=== PATIENT | female | born 1950 | race Caucasian/White ===

== ENCOUNTER → 2021-12-31 13:26 | Outpatient (BNVA) | payer MEDICARE, OTHER, SELFPAY | PROVIDERS: Family Provider Nurse Practitioner Family; PCP Nurse Practitioner Family; Visit Provider Podiatrist Foot & Ankle Surgery | DX: M79.89 Other specified soft tissue disorders (principal); M21.371 Foot drop, right foot; M21.541 Acquired clubfoot, right foot | CPT/HCPCS: 10021; 73630; 88307; 99204 ==

== ENCOUNTER → 2022-01-07 09:53 | Outpatient (BNVA) | payer MEDICARE, OTHER, SELFPAY | PROVIDERS: Family Provider Nurse Practitioner Family; PCP Nurse Practitioner Family; Visit Provider Podiatrist Foot & Ankle Surgery | DX: M21.371 Foot drop, right foot (principal); M21.541 Acquired clubfoot, right foot; M79.89 Other specified soft tissue disorders | CPT/HCPCS: 99214 ==

== ENCOUNTER 2022-02-03 01:00 | Day surgery (SDC) | payer MEDICARE, OTHER, SELFPAY | END 2022-02-03 23:00 | disposition home or self-care (01) | LOC: OR 03-24 14:29 | PROVIDERS: PCP Nurse Practitioner Family; Visit Provider Podiatrist Foot & Ankle Surgery | DX: Z01.818 Encounter for other preprocedural examination (principal) | CPT/HCPCS: 87070; 87075; 87205 ==

== ENCOUNTER → 2022-02-03 08:23 | Outpatient (BNVA) | payer MEDICARE, OTHER, SELFPAY | PROVIDERS: Family Provider Nurse Practitioner Family; PCP Nurse Practitioner Family; Visit Provider Podiatrist Foot & Ankle Surgery | DX: M79.89 Other specified soft tissue disorders (principal) | CPT/HCPCS: 10140; 88307 ==

== ENCOUNTER → 2022-02-10 07:46 | Outpatient (BNVA) | payer MEDICARE, OTHER, SELFPAY | PROVIDERS: Family Provider Nurse Practitioner Family; PCP Nurse Practitioner Family; Visit Provider Podiatrist Foot & Ankle Surgery | DX: M21.541 Acquired clubfoot, right foot (principal); M21.371 Foot drop, right foot; M79.89 Other specified soft tissue disorders | CPT/HCPCS: 99214 ==

== ENCOUNTER 2022-02-19 11:41 | Day surgery (SDC) | payer MEDICARE, OTHER, SELFPAY ==
[2022-02-19] VITALS (7 sets, daily range): BP systolic 125–177; BP diastolic 54–87; PULSE 55–63; RESP 16–18; TEMP 36.1–36.6; O2SAT 95–98
[2022-02-19] MEDS: gabapentin 300 mg Capsule PO (12:11)
[2022-02-19] MEDS: sodium chloride 0.9% 1,000 ML 30 ML IV (12:12)
[2022-02-19] MEDS: CELEcoxib 200 mg Capsule 400 MG PO (12:12)
--- NOTE | 2022-02-19 12:13 | ECG_ITS ---
[facility] Test Date: 2022-02-19 Pat Name: Joya Alvares Department: Room: Gender: Female Help Desk Manager: : 1950 Requested By: Buzz Ngo Order Number: [id number] Blair MD: Sandra Scales M.D. Measurements Intervals Kinsey Rate: 58 P: 74 MT: 162 QRS: 39 QRSD: 97 T: 72 QT: 410 QTc: 404 Interpretive Statements SINUS BRADYCARDIA No previous ECG available for comparison Electronically Signed On 02-20-2022 20:40:43 SENIOR HUMAN RESOURCES REPRESENTATIVE by Sandra Scales M.D. [id number]
--- NOTE | 2022-02-19 13:04 | ANES.PREANE2 ---
Pre-Anesthetic Assessment Height/Weight: Height 1.63 m Weight 49.895 kg Temp Pulse Resp BP Pulse Ox O2 Del Method 98 F 63 18 177/87 97 02/19/22 11:49 02/19/22 11:49 02/19/22 11:49 02/19/22 11:49 02/19/22 11:49 02/19/22 12:05 Preop Diagnosis: Right foot soft tissue mass Operation Date: 02/19/22 13:15 Proposed Procedures p Soft tissue mass excision greater than 1.5cm CPT 51528,R22.41,M79.9(Right) - Buzz Ngo DPM Familial anesthetic complications: None Was Beta Fredy taken within 24 hours: N/A Was Clonidine taken within 24 hours: N/A Last intake: Intake Last Liquid Date 02/18/22 Last Liquid Time 23:00 Last Solid Date 02/18/22 Last Solid Time 19:00 Social Tobacco and No alcohol Exam alert, oriented x 3, clear to auscultation bilaterally and regular rate & rhythm Airway Mallampati: Class I Dentition: other (multiple missing, poor dentition ( they'll all get pulled soon )) CV/HEM Hypertension Anesthetic Plan ASA status: 2 Anesthesia: MAC Risk of > 500 ml blood loss (7ml/kg in children): No Medications/Allergies Home Medications Medication Instructions Recorded Confirmed Last Taken Type AFO non articulating #1 ea 12/31/21 02/10/22 Unknown Rx telmisartan 40 mg tablet 40 mg PO DAILY #90 tabs 02/10/22 02/18/22 02/18/22 Rx aspirin 81 mg tablet 81 mg PO DAILY 02/18/22 02/18/22 02/18/22 History Allergies Allergy/AdvReac Type Severity Reaction Status Date / Time Penicillins Allergy Severe BREATHING Verified 02/18/22 14:09 PROBLEMS prednisone Allergy Mild RASH Verified 02/18/22 14:09 Sulfa (Sulfonamide Allergy Mild RASH Verified 02/18/22 14:09 Antibiotics) tetracycline Allergy Mild RASH Verified 02/18/22 14:09 Current Medications Generic Name Dose Route Start Last Admin Trade Name Freq PRN Reason Stop Dose Admin Sodium Chloride 1,000 mls @ 30 mls/hr 02/19/22 12:00 02/19/22 12:12 Sodium Chloride 0.9% IV 02/20/22 11:59 30 mls/hr .Q24H NIRAV Administration PFSH Anesthesia Surgical History Hx of section Hx of hemorrhoidectomy Hx of tubal ligation Family History Grandmother CHF (congestive heart failure) Hypertension Mother Hypertension Social History Smoking and tobacco status: current every day smoker Alcohol intake: never Adopted: No Caregiver/support person: No Lives independently: Yes service: No Current occupational status: retired Current gender identity: Female Data Anesthesia 02/19/22 12:10 Cardiac Studies: No Data to Display
[2022-02-19 13:05] LABS: Blood Urea Nitrogen 10 mg/dL (8-23); Calcium 9.5 mg/dL (8.5-10.5); Carbon Dioxide 27 mmol/L (22-29); Chloride 101 mmol/L (98-107); Glucose 79 mg/dL (65-115); Osmolality Calculated 278 mOsm/kg (285-295); Sodium 135 mmol/L (136-145)
[2022-02-19 13:08] LABS: Anion Gap 11.6 (5-19); Potassium 4.6 mmol/L (3.5-5.1)
--- NOTE | 2022-02-19 13:13 | P.HP_ITS ---
Same Day Surgery H&P Indication for Procedure/HPI DATE OF PROCEDURE: February 19, 2022 CHIEF COMPLAINT/INDICATIONFOR SURGICAL PROCEDURE: Right foot soft tissue mass PREOP DIAGNOSIS: Right foot soft tissue mass PLANNED PROCEDURE: Operation Date: 02/19/22 13:15 Proposed Procedures p Soft tissue mass excision greater than 1.5cm CPT 44932,R22.41,M79.9(Right) - Buzz Ngo DPM Patient has had right soft tissue mass for some time now. Conservative treatment options have been attempted and patient has opted for surgical removal of the mass at this time. Medications/Allergies* Penicillin, prednisone, sulfa antibiotics, tetracycline Home Medications Medication Instructions Recorded Confirmed Type aspirin 81 mg tablet 81 mg PO DAILY 02/18/22 02/18/22 History Allergies/Adverse Reactions Allergy/AdvReac Type Severity Reaction Status Date / Time Penicillins Allergy Severe BREATHING Verified 02/18/22 14:09 PROBLEMS prednisone Allergy Mild RASH Verified 02/18/22 14:09 Sulfa (Sulfonamide Allergy Mild RASH Verified 02/18/22 14:09 Antibiotics) tetracycline Allergy Mild RASH Verified 02/18/22 14:09 Current Medications: 3 Generic Name Dose Route Start Last Admin Trade Name Freq PRN Reason Stop Dose Admin Sodium Chloride 1,000 mls @ 30 mls/hr 02/19/22 12:00 02/19/22 12:12 Sodium Chloride 0.9% IV 02/20/22 11:59 30 mls/hr .Q24H NIRAV Administration Pertinent History/Comorbid Conditions* Surgical History (Updated 01/22/22 @ 10:15 by SAGE Badillo) Hx of section Hx of hemorrhoidectomy Hx of tubal ligation Family History (Updated 12/18/21 @ 14:24 by Federica Abbott LPN) CHF (congestive heart failure) Grandmother Hypertension Grandmother Mother Social History Smoking and tobacco status: current every day smoker Alcohol intake: never Adopted: No Caregiver/support person: No Lives independently: Yes service: No Current occupational status: retired Current gender identity: Female Pertinent Exam Findings alert, oriented x 3, clear to auscultation bilaterally, regular rate & rhythm, operative site marked and procedure specific exam findings GENERAL: A&O x 3 VASCULAR: DP/PT pulses palpable 2/4 with CFT intact, <3seconds to distal digits DERMATOLOGICAL: Skin turgor and temperature is within normal limits. No open wounds or skin lesions noted. Nails are well manicured and normotrophic. No interdigital maceration noted. MUSCULOSKELETAL: Plantar right heel soft tissue mass freely mobile NEUROLOGICAL: Neurological sensation to the affected foot and ankle is present through L4-S1 dermatomes with no hyper/hypoesthesias, negative Tinel or Ashley leix's sign CARDIO: Regular rate and rhythm. Normal S1, S2. No murmurs, rubs or gallops RESPIRATORY: Normal respiratory effort. No wheezing or crackles. Clear to auscultation Recommendations Surgery/Procedure today Other Plans: Right foot soft tissue mass excision Coding Level of Care Code Acute Lead Manufacturing Engineering Tech for Donnie Craig
[2022-02-19] MEDS: clindamycin 600 MG/50 ML PREMIX 100 MG IV (13:23)
[2022-02-19] MEDS: HYDROcodone-acetaminophen 5-325 mg Tablet 1 TAB PO (14:36)
--- NOTE | 2022-02-19 16:53 | ANE.PACU2 ---
Inpatient post-anesthesia follow up: Airway intact: Yes Vital signs: Temperature 97.8 F Pulse Rate 61 Respiratory Rate 18 Blood Pressure 176/84 Pulse Oximetry 98 Oxygen Delivery Me thod Room Air Oxygen Flow Rate Fraction of Inspir ed Oxygen Hydration adequate: Yes Nausea and vomiting: No Pain level: 1 Mental status: Baseline
--- NOTE | 2022-02-19 17:00 | P.OP_ITS ---
Operative Report Date of procedure: February 19, 2022 Pre-op diagnosis: Preop Diagnosis Right foot soft tissue mass Post-op diagnosis: Same Post-op findings: Inclusion like cyst to plantar aspect of right heel with caseous, discharge, not well encapsulated Procedure done: Right foot soft tissue mass excision CPT 41614 Implants: None Specimens removed/disposition: Soft tissue mass right foot Pathology: Soft tissue mass right foot sent to pathology Surgeon: Jenni [email or web address].PJosef Estimated blood loss: Less than 10 cc Complications: None Findings: See above Procedure: Patient is a 71-year-old female that has a history of right foot soft tissue mass. The patient has had the aforementioned chief complaint for some time. Conservative treatment measures have been attempted and the patient has opted for surgical intervention at this time. A lengthy discussion regarding the procedure, including risks and complications has been had with the patient and is noted in the recent clinic note. Written and verbal consent have been obtained. All patient questions have been answered to the patient?s satisfaction. No written or verbal guarantees have been given or implied. The patient has been NPO since midnight. The history has been reviewed and the history and physical is current. The signed consent was confirmed and placed in the patient chart. Patient imaging has been reviewed and is consistent with the diagnosis. Under mild sedation, the patient was brought into the operating room and placed on the table in the supine position. IV antibiotics were given by the anesthesia team as preoperative surgical prophylaxis. IV sedation was then performed by the anesthesiateam. A local field block was then performed using 0.5% Marcaine plain. A pneumatic tourniquet was then placed about the right ankle. The operative extremity was then prepped and draped in the usual fashion. The extremity was then elevated and exsanguinated before the tourniquet was inflated to 250 mmHg. After inflation, the following procedure was then performed. Attention was directed to the plantar aspect of the right heel where a 5 cm incision was made lateral to the soft tissue mass. Dissection was carried out the subcutaneous superficial fascia to the level of the soft tissue mass. Using Metzenbaum scissors dissection was carried out circumferentially around the soft tissue mass. It was noted that it was not well encapsulated. It was expressed from the site and was noted to be white, tannish in color. It was easily expressed from the foot. The mass that was expressed was then passed from the operative field to be sent to pathology for evaluation. The site was then irrigated with copious amounts of sterile saline. No remaining soft tissue mass was visualized. The remaining tissue appeared healthy and viable in nature. Any bleeders were cauterized as necessary during this time. The tourniquet was let down and good hyperemic response was noted to all digits of the right foot. The incision was closed with 3-0 Prolene in horizontal mattress fashion. The incision site was dressed with Xeroform, 4 x 4 gauze, Kerlix and Porter bandage. The patient tolerated the procedure and anesthesia well and without complication . The patient was transported from the operating room to the recovery room with vital signs stable and vascular status intact to all digits of the right foot. The patient was given both written and verbal instructions to remain minimal weightbearing to the operative extremity, to keep dressings/splint clean, dry and intact and to take pain medication as directed. The patient will follow-up in the outpatient setting at their scheduled appointment. The patient was discharged with my personal number and was instructed to call if any questions or issues should arise. They were discharged home once anesthesia criteria was met.
== END 2022-02-19 15:03 | disposition home or self-care (01) ==
PROVIDERS: PCP Nurse Practitioner Family; Visit Provider Podiatrist Foot & Ankle Surgery
PROC: (CPT 28039; principal; 2022-02-19 13:05)
DX: L72.0 Epidermal cyst (principal); R22.41 Localized swelling, mass and lump, right lower limb; I10 Essential (primary) hypertension; F17.200 Nicotine dependence, unspecified, uncomplicated
CPT/HCPCS: 28039; 80048; 87070; 87075; 87205; 88309; 93005; C9290; J2704; J3010; J3490; J7030

== ENCOUNTER → 2022-03-06 13:50 | Outpatient (BNVA) | payer MEDICARE, OTHER, SELFPAY | PROVIDERS: PCP Nurse Practitioner Family; Visit Provider Podiatrist Foot & Ankle Surgery | DX: Z98.890 Other specified postprocedural states (principal); M21.371 Foot drop, right foot; M21.541 Acquired clubfoot, right foot; M79.89 Other specified soft tissue disorders | CPT/HCPCS: 99024 ==

== ENCOUNTER → 2022-04-03 12:45 | Outpatient (BNVA) | payer MEDICARE, OTHER, SELFPAY | PROVIDERS: PCP Nurse Practitioner Family; Visit Provider Podiatrist Foot & Ankle Surgery | DX: Z98.890 Other specified postprocedural states (principal); L89.612 Pressure ulcer of right heel, stage 2; M21.371 Foot drop, right foot; M21.541 Acquired clubfoot, right foot | CPT/HCPCS: 11042 ==

== ENCOUNTER → 2022-04-22 12:56 | Outpatient (BNVA) | payer MEDICARE, OTHER, SELFPAY | PROVIDERS: PCP Nurse Practitioner Family; Visit Provider Podiatrist Foot & Ankle Surgery | DX: Z98.890 Other specified postprocedural states (principal); M21.371 Foot drop, right foot; M21.541 Acquired clubfoot, right foot; M79.89 Other specified soft tissue disorders; L89.612 Pressure ulcer of right heel, stage 2 | CPT/HCPCS: 99024 ==

== ENCOUNTER → 2022-07-01 12:48 | Outpatient (BNVA) | payer MEDICARE, OTHER, SELFPAY | PROVIDERS: PCP Nurse Practitioner Family; Visit Provider Podiatrist Foot & Ankle Surgery | DX: Z98.890 Other specified postprocedural states (principal); M21.371 Foot drop, right foot; M21.541 Acquired clubfoot, right foot | CPT/HCPCS: 99024 ==